=== PATIENT | male | born 1980 | race Caucasian/White ===

== ENCOUNTER 2016-12-11 09:04 | Emergency (ER) | payer OTHER ==
[2016-12-11 09:15] VITALS: BP 142/77
[2016-12-11] MEDS ORDERED: DEXAMETHASONE 10 MG/ML VIAL PO STA (09:21)
[2016-12-11] MEDS ORDERED: DEXAMETHASONE 10 MG/ML VIAL ONE (09:22)
--- NOTE | 2016-12-11 09:24 | ED Physician Documentation ---
PD HPI HEENT - Stated complaint Stated Complaint: THROAT PX - Chief complaint Chief Complaint: Heent - History obtained from History obtained from: Patient - History of Present Illness Timing - onset: How many days ago (2) Timing - duration: Days (2) Timing - details: Gradual onset, Still present Location: Throat Improves: Medication Worsens: Swalllowing Associated symptoms: Congestion, Rhinorrhea, Cough Similar symptoms before: Diagnosis (strep) Recently seen: Not recently seen - Additional information Additional information: 36 y/o male has had some trouble with a light cough and congestion for the past 2 weeks with seasonal allergies and about 2 days ago he developed a sore throat and he looked at this in the mirror and sees a white patch back there. He has not had a fever with this but he has 2 small children and he does not want to get them sick. Review of Systems Constitutional: denies: Fever Eyes: denies: Decreased vision Ears: reports: Ear pain. denies: Loss of hearing Nose: reports: Rhinorrhea / runny nose, Congestion Throat: reports: Sore throat Cardiac: denies: Chest pain / pressure, Palpitations Respiratory: reports: Cough. denies: Dyspnea GI: denies: Nausea, Vomiting : denies: Dysuria PD PAST MEDICAL HISTORY - Present Medications Home Medications: Ambulatory Orders Medication Instructions Recorded Confirmed Azithromycin [Zithromax] 250 mg PO DAILY #6 tablet 12/11/16 - Allergies Allergies/Adverse Reactions: Allergies Allergy/AdvReac Type Severity Reaction Status Date / Time No Known Drug Allergies Allergy Verified 12/11/16 09:11 PD ED PE NORMAL - Vitals Vital signs reviewed: Yes (hypertensive) - General General: Alert and oriented X 3, No acute distress, Well developed/nourished - HEENT HEENT: Atraumatic, PERRL, EOMI, Other (both TM's are inflamed with flatening of the landmarks. The pharynx is with swelling and erythema and an uleration to the uvula. ) - Neck Neck: Supple, no meningeal sign, No bony TTP - Cardiac Cardiac: RRR, No murmur - Respiratory Respiratory: No respiratory distress, Clear bilaterally - Abdomen Abdomen: Soft, Non tender - Back Back: No CVA TTP, No spinal TTP - Derm Derm: Normal color, Warm and dry, No rash - Extremities Extremities: No deformity - Neuro Neuro: Alert and oriented X 3, No motor deficit, No sensory deficit - Psych Psych: Normal mood, Normal affect Results - Vitals Vitals: Vital Signs - 24 hr 12/11/16 09:08 Temperature 36.8 C Heart Rate 80 Respiratory 18 Rate Blood Pressure 142/77 H O2 Saturation 97 Oxygen O2 Source Room air - Labs Labs: Laboratory Tests 12/11/16 09:20 Group A Strep Rapid Negative PD MEDICAL DECISION MAKING - ED course Complexity details: reviewed results, re-evaluated patient, considered differential, d/w patient ED course: 36 y/o male with a sore throat also has OM on exam. His throat looks more like he burned the uvula or has a primary viral infection. He is treated in the ED with decadron and we will put him on some zithromax. Departure - Departure Disposition: 01 Home, Self Care Clinical Impression: Sore throat Otitis media Qualifiers: Otitis media type: suppurative Laterality: bilateral Chronicity: acute Recurrence: not specified as recurrent Spontaneous tympanic membrane rupture: without spontaneous rupture Qualified Code(s): H66.003 - Acute suppurative otitis media without spontaneous rupture of ear drum, bilateral Condition: Stable Instructions: ED Otitis Media Acute Adult, ED Pharyngitis Viral Report Pending Follow-Up: [facility] [Provider Group] Prescriptions: Azithromycin [Zithromax] 250 mg PO DAILY #6 tablet Comments: Today in the Emergency Department your blood pressure was elevated. This can happen from the stress of the visit itself, from a current illness or circumstance or from uncontrolled hypertension. If you take blood pressure medications take your usual mediations, have your blood pressure re-checked in an appropriate setting and follow up any elevation with your primary care doctor. Discharge Date/Time: 12/11/16 10:34
[2016-12-11 09:42] LABS: RAPID STREP SCREEN REAGENT QC YELLOW (YELLOW)
== END 2016-12-11 10:34 | disposition home or self-care (01) ==
LOC: ED 09:04
DX: J02.9 Acute pharyngitis, unspecified (principal); H66.003 Acute suppurative otitis media without spontaneous rupture of ear drum, bilateral; R03.0 Elevated blood-pressure reading, without diagnosis of hypertension
CPT/HCPCS: 87070; 87430; 99283

== ENCOUNTER 2018-07-21 15:28 | Outpatient (CLI) | payer OTHER ==
--- NOTE | 2018-07-21 17:57 | MRI Report ---
Reason: PAIN IN RIGHT SHOULDER Procedure Date: 07/21/2018 Accession Number: [id number] / [id number] Procedure: MRI - Shoulder RT W/O CPT Code: FULL RESULT: EXAM: RIGHT SHOULDER MRI WITHOUT CONTRAST EXAM DATE: 07/21/2018 04:19 PM. CLINICAL HISTORY: Right shoulder pain for 4 months. Limited range of motion. COMPARISON: None. TECHNIQUE: Multiplanar, multisequence T1-weighted and fluid-sensitive sequences of the shoulder without contrast. Other: None. FINDINGS: Acromioclavicular Region: The acromion is type II. The acromioclavicular joint is unremarkable. The coracoacromial and coracoclavicular ligaments are intact. Trace amount of fluid at the subacromial/subdeltoid bursa. Glenohumeral Region: No subluxation. No effusion or loose bodies. The articular cartilage is unremarkable. The glenohumeral ligaments and joint capsule are unremarkable. Bone Marrow: No fracture, marrow edema or bone lesions. Labrum: The labrum is unremarkable on this nonarthrographic study. Musculature/Rotator Cuff: The supraspinatus tendon is unremarkable. There is infraspinatus tendinosis. Teres minor tendon is unremarkable. There is a linear low-grade partial-thickness intrasubstance tear at the distal aspect of the subscapularis tendon. No edema or fatty atrophy. Biceps Tendon: The long head of the biceps tendon and biceps bushra are intact. Other: The subcutaneous tissues are unremarkable. IMPRESSION: 1. Infraspinatus tendinosis. 2. Linear low-grade partial-thickness intrasubstance tear at the distal aspect of the subscapularis tendon. [facility] MUSCULOSKELETAL RADIOLOGY SECTION
== END 2018-07-21 15:29 | disposition home or self-care (01) ==
LOC: DI 15:28
PROVIDERS: ATTEND General Practice
DX: M75.101 Unspecified rotator cuff tear or rupture of right shoulder, not specified as traumatic (principal); M67.911 Unspecified disorder of synovium and tendon, right shoulder

== ENCOUNTER 2019-05-21 10:50 | Emergency (ER) | payer OTHER ==
--- NOTE | 2019-05-21 11:20 | ED Physician Documentation ---
History of Present Illness - Stated complaint Stated Complaint: HEART RACING/RT SIDE NUMBESS - Chief complaint Chief Complaint: Cardiac - History obtained from History obtained from: Patient - History of Present Illness Timing: Prior to arrival - Additonal information Additional information: This is a 38-year-old man who presents with complaint that he was sitting down in his work to study when all of a sudden the right On from the shoulders all the way down to the fingers went tingly. Then he felt like his heart was racing and he was very lightheaded. He got up and walked to the [place] thinking that he might just be hungry and needs something to eat. He was little bit short of breath and when he got back and his symptoms were not resolving he decided to have his friend bring him into the emergency department to be evaluated. This was a very sudden onset of the symptoms and he had a similar episode happened about 2 weeks ago that lasted for a few hours and then just resolved spontaneously. Patient says he drank about a half a cup of coffee this morning. He got a little bit nauseous with this but did not vomit. Had no chest pain. He never checked his heart rate. He did not get a headache or feel dizzy. He denies use of any illicit drugs and has not been using any [id number] decongestants. He does drink alcohol 1-2 drinks a night. 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 No recent illness. No history of cardiac disease. He is not diabetic. Review of Systems Constitutional: denies: Fever Eyes: denies: Loss of vision Ears: denies: Ear pain Nose: denies: Congestion Throat: denies: Sore throat Cardiac: reports: Palpitations. denies: Chest pain / pressure, Pedal edema Respiratory: reports: Dyspnea. denies: Cough GI: reports: Nausea. denies: Abdominal Pain, Vomiting, Diarrhea : denies: Dysuria Skin: denies: Rash Musculoskeletal: denies: Neck pain, Back pain, Extremity pain Neurologic: denies: Numbness (Tingling to the left arm that started in the hand and progressed up to the shoulder), Near syncope ([place] lightheaded), Syncope, Headache, LOC Endocrine: reports: Other (Patient is not a diabetic. No history of thyroid disorder) Immunocompromised: denies: Immunocompromised PD PAST MEDICAL HISTORY - Past Medical History Cardiovascular: None Respiratory: None Neuro: None Endocrine/Autoimmune: None GI: None : None HEENT: None Psych: None Musculoskeletal: None Derm: None - Past Surgical History Past Surgical History: No - Allergies Allergies/Adverse Reactions: Allergies Allergy/AdvReac Type Severity Reaction Status Date / Time No Known Drug Allergies Allergy Verified 05/21/19 11:07 - Social History Does the pt smoke?: No Smoking Status: Never smoker Does the pt drink ETOH?: No Does the pt have substance abuse?: No - Immunizations Immunizations are current?: Yes - POLST Patient has POLST: No PD ED PE NORMAL - Vitals Vital signs reviewed: Yes - General General: Alert and oriented X 3, No acute distress, Well developed/nourished - HEENT HEENT: Atraumatic, PERRL, EOMI, Moist mucous membranes, Pharynx benign - Neck Neck: Supple, no meningeal sign, No adenopathy, Thyroid normal, No bruit - Cardiac Cardiac: RRR, No murmur, Strong equal pulses - Respiratory Respiratory: No respiratory distress, Clear bilaterally - Abdomen Abdomen: Normal bowel sounds, Soft, Non tender, Non distended - Derm Derm: Normal color, Warm and dry, No rash - Extremities Extremities: No deformity, No tenderness to palpate, No edema - Neuro Neuro: Alert and oriented X 3, 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, No motor deficit, No sensory deficit, Normal speech - Psych Psych: Normal mood, Normal affect Results - Vitals Vitals: Vital Signs - 24 hr 05/21/19 05/21/19 05/21/19 11:03 12:46 14:00 Temperature 36.8 C Heart Rate 85 71 65 Respiratory 16 12 11 L Rate Blood Pressure 158/84 H 134/82 H 132/79 H O2 Saturation 100 100 98 05/21/19 05/21/19 05/21/19 14:46 15:00 15:24 Temperature 37.1 C Heart Rate 87 63 76 Respiratory 22 9 L 16 Rate Blood Pressure 128/82 H 131/83 H 126/86 H O2 Saturation 100 97 98 Oxygen O2 Source Room air - EKG (time done) 1104 Rate: Rate (enter#) (82) Rhythm: NSR Intervals: Normal TN. No: Wide QRS Ischemia: Normal ST segments Compare to prior EKG: Old EKG unavailable 1440 Rate: Rate (enter#) (68) Rhythm: NSR Intervals: Normal TN. No: Wide QRS Ischemia: Normal ST segments Compare to prior EKG: Unchanged from prior EKG - Labs Labs: Laboratory Tests 05/21/19 05/21/19 05/21/19 11:24 11:24 11:24 WBC 4.3 L RBC 4.40 L Hgb 13.6 L Hct 41.4 L MCV 94.1 H MCH 30.9 MCHC 32.9 RDW 12.1 Plt Count 230 MPV 9.2 Neut # (Auto) 2.7 Lymph # (Auto) 1.2 L Clayton # (Auto) 0.3 Eos # (Auto) 0.1 Baso # (Auto) 0.0 Absolute Nucleated RBC 0.00 Nucleated RBC % 0.0 Sodium 137 Potassium 3.7 Chloride 98 L Carbon Dioxide 27 Anion Gap 12.0 BUN 11 Creatinine 0.9 Estimated GFR (MDRD) 95 Glucose 174 H Calcium 9.0 Total Bilirubin 0.6 AST 65 H ALT 71 H Alkaline Phosphatase 50 Troponin I High Sens < 2.3 L Total Protein 7.6 Albumin 4.6 Globulin 3.0 Albumin/Globulin Ratio 1.5 Lipase 39 TSH 05/21/19 05/21/19 11:24 14:26 WBC RBC Hgb Hct MCV MCH MCHC RDW Plt Count MPV Neut # (Auto) Lymph # (Auto) Clayton # (Auto) Eos # (Auto) Baso # (Auto) Absolute Nucleated RBC Nucleated RBC % Sodium Potassium Chloride Carbon Dioxide Anion Gap BUN Creatinine Estimated GFR (MDRD) Glucose Calcium Total Bilirubin AST ALT Alkaline Phosphatase Troponin I High Sens 2.5 Total Protein Albumin Globulin Albumin/Globulin Ratio Lipase TSH 0.92 - Rads (name of study) CXR Radiology: EMP read indepedently (neg acute), See rad report PD MEDICAL DECISION MAKING - ED course Complexity details: reviewed results, re-evaluated patient, d/w patient, d/w family ED course: Patient was monitored here in the emergency department he had no tachycardia. He had to troponins that were negative and serial EKGs that were normal. Labs were normal. This point I do not have a clear explanation for his symptoms. [place] and [place] for wearing a Holter monitor. Departure - Departure Disposition: 01 Home, Self Care Clinical Impression: Arm paresthesia, right, Palpitations Condition: Good Instructions: ED Chest Pain Atypical Unkn Cause Follow-Up: [facility] [Provider Group] Comments[place] if you have any persistent symptoms and to discuss whether or not of Holter monitoring would be beneficial for you. Discharge Date/Time: 05/21/19 15:26
[2019-05-21 11:32] LABS: BASOPHILS % (AUTO) 0.9 %; EOSINOPHILS # (AUTO) 0.1 10^3/uL (0.0-0.7); EOSINOPHILS % (AUTO) 2.1 %; HGB - HEMOGLOBIN 13.6 g/dL (14.0-18.0); LYMPHOCYTES # (AUTO) 1.2 10^3/uL (1.5-3.5); LYMPHOCYTES % (AUTO) 27.4 %; MEAN CORPUSCULAR HEMOGLOBIN 30.9 pg (27.0-31.0); MEAN CORPUSCULAR HGB CONC 32.9 g/dL (32.0-36.0); MEAN CORPUSCULAR VOLUME 94.1 fL (80.0-94.0); MEAN PLATELET VOLUME 9.2 fL (7.4-11.4); MONOCYTES # (AUTO) 0.3 10^3/uL (0.0-1.0); NEUTROPHILS # (AUTO) 2.7 10^3/uL (1.5-6.6); NEUTROPHILS % (AUTO) 62.1 %; PLT - PLATELET COUNT 230 10^3/uL (130-450); RED CELL DISTRIBUTION WIDTH 12.1 % (12.0-15.0); WHITE BLOOD COUNT 4.3 x10^3/uL (4.8-10.8)
[2019-05-21 11:44] LABS: ALBUMIN 4.6 g/dL (3.2-5.5); ALBUMIN/GLOBULIN RATIO 1.5 (1.0-2.2); BILIRUBIN,TOTAL 0.6 mg/dL (0.2-1.0); CREATININE 0.9 mg/dL (0.6-1.2); TOTAL PROTEIN 7.6 g/dL (6.7-8.2)
--- NOTE | 2019-05-21 11:56 | XRAY Report ---
Reason: Chest Pain Procedure Date: 05/21/2019 Accession Number: [id number] / [id number] Procedure: XR - Chest 1 View X-Ray CPT Code: 16138 Final Report FULL RESULT: EXAM: CHEST RADIOGRAPHY EXAM DATE: 05/21/2019 11:25 AM. CLINICAL HISTORY: Chest Pain. COMPARISON: None. TECHNIQUE: 1 view. FINDINGS: Lungs/Pleura: No focal opacities evident. No pleural effusion. No pneumothorax. Mediastinum: Within exam limitations, the cardiomediastinal contour is normal. Other: None. IMPRESSION: Normal single view chest. [facility]
[2019-05-21 15:26] VITALS: BP 126/86
== END 2019-05-21 15:26 | disposition home or self-care (01) ==
LOC: ED 10:50
DX: R00.2 Palpitations (principal); R20.2 Paresthesia of skin
CPT/HCPCS: 36415; 71045; 80053; 83690; 84443; 84484; 85025; 93005; 99281; 99283

== ENCOUNTER 2020-06-20 08:39 | Emergency (ER) | payer OTHER ==
--- NOTE | 2020-06-20 08:46 | ED Physician Documentation ---
PD HPI URI - Stated complaint Stated Complaint: FOOTE/CONGESTION/COUGH - History obtained from History obtained from: Patient - History of Present Illness Timing - onset: Yesterday Timing duration: Days (1) Timing details: Abrupt onset, Still present Associated symptoms: Chills, Rhinorrhea, Sore throat, Dry cough (mild), Dyspnea (walking up stairs today), Other (no change in taste nor smell; has general aches and fatigue started yesterday). No: Fever, Swollen nodes, Productive cough Contributing factors: Other (has had close contact with coworkers (though masked).). 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 denies: Fever Nose: reports: Rhinorrhea / runny nose, Congestion, Sinus pressure / pain Throat: reports: Sore throat Respiratory: reports: Dyspnea (mild), Cough (mild). denies: Wheezing GI: denies: Nausea, Vomiting, Diarrhea Skin: denies: Rash Neurologic: denies: Headache PD PAST MEDICAL HISTORY - Past Medical History Cardiovascular: None Respiratory: None Neuro: None Endocrine/Autoimmune: None GI: None : None HEENT: None Psych: None Musculoskeletal: None Derm: None - Past Surgical History Past Surgical History: No - Present Medications Home Medications: Ambulatory Orders Medication Instructions Recorded Confirmed No Known Home Medications 06/20/20 06/20/20 - Allergies Allergies/Adverse Reactions: Allergies Allergy/AdvReac Type Severity Reaction Status Date / Time No Known Drug Allergies Allergy Verified 06/20/20 08:52 - Social History Does the pt smoke?: No Smoking Status: Never smoker Does the pt drink ETOH?: No Does the pt have substance abuse?: No - Immunizations Immunizations are current?: Yes - POLST Patient has POLST: No PD ED PE NORMAL - Vitals Vital signs reviewed: Yes - General General: Alert and oriented X 3, No acute distress, Well developed/nourished, Other (I examined the patient properly donned) - HEENT HEENT: Ears normal, Moist mucous membranes, Pharynx benign - Neck Neck: Supple, no meningeal sign, No adenopathy - Cardiac Cardiac: RRR, No murmur - Respiratory Respiratory: Clear bilaterally - Derm Derm: Normal color, Warm and dry, No rash - Neuro Neuro: Alert and oriented X 3, No motor deficit, Normal speech Results - Vitals Vitals: Vital Signs - 24 hr 06/20/20 06/20/20 08:49 09:09 Temperature 36.5 C Heart Rate 61 61 Respiratory 20 16 Rate Blood Pressure 143/97 H 134/92 H O2 Saturation 100 100 Oxygen O2 Source Room air Departure - Departure Disposition: Home, Self Care Clinical Impression: Upper respiratory infection Qualifiers: URI type: unspecified URI Qualified Code(s): J06.9 - Acute upper respiratory infection, unspecified Condition: Stable Record reviewed to determine appropriate education?: Yes Instructions: ED Upper Resp Infec No Abx Tx Follow-Up: [facility] [Provider Group] Comments: You have a Covid test pending. You need to self quarantine until the result is done and negative. Do not leave your house. Do not get near anybody. The results should be done in 48 to 72 hours, but sometimes longer. We will call with a positive result, the fastest way to get a negative result for confirmation though is to go to the hospital website at [email or web address], click on the my [employer] tab and sign up for the patient portal. If any friends or family get sick and would like to have a Covid test done, but do not have signs or symptoms that would necessitate being hospitalized, we encourage testing through our coronavirus swabbing station, call [phone] to schedule an appointment. Hopefully this is a common viral type cold and would be better in 2 to 3 days. Stay well-hydrated. Tylenol ibuprofen as needed for fevers and aches. Blfd-[id number]-[id number] cough medicine if needed etc. Forms: Activity restrictions
[2020-06-20 09:10] VITALS: BP 134/92
== END 2020-06-20 09:15 | disposition home or self-care (01) ==
LOC: ED 08:39
DX: J06.9 Acute upper respiratory infection, unspecified (principal); Z20.828 Contact with and (suspected) exposure to other viral communicable diseases
CPT/HCPCS: 99283

== ENCOUNTER 2023-01-03 13:21 | Outpatient (CLI) | payer OTHER ==
--- NOTE | 2023-01-03 16:04 | SLEEP CARE CONSULTATION ---
Information from patient questionnaire entered by Klaus Farmer. I have reviewed and concur with the information entered by Kluas Farmer. This document represents the service I personally performed and the decisions made by me, Jake Tamayo MD, [facility]. History of Present Illness Service Date and Time: 01/03/2023 1321 Reason for Visit: New patient Chief Complaint: reports: Insomnia, Unrefreshed sleep, Snoring, Observed pauses in breathing, Fatigue, Frequent awakenings at night Date of Onset: 4-5YRS Usual bedtime: 930-1030PM Time it takes to fall asleep: 30-60MIN Snores at night: Yes Observed to quit breathing while asleep: Yes Number of times waking at night: 5-10 Reasons for waking at night: reports: Snoring, Other (UNKNOWN) Toss, Turn, or Twitch while sleeping: Yes Recalls having dreams: Yes Usually gets out of bed at: 5AM Feels refreshed in the morning: No Morning headache: No Sleepy or fatigued during the day: Yes Ever fallen asleep while driving: No Takes day naps: Yes Dreams during day naps: Yes Prior sleep studies: No Additional HPI information: I had the pleasure of seeing Mr. Lee today regarding the possibility of him having a sleep disorder. As you know, he is a 42-year-old gentleman who complains of insomnia, frequent awakenings, loud snores, observed apneas, unrefreshed sleep, excessive daytime sleepiness, and persistent fatigue for 4 5 years. The patient tells me that he normally goes to bed around 9:30 10:30 pm, and it takes him approximately 30 - 60 minutes to fall asleep. He has been told that he snores loudly and irregularly at night. He has also been observed to stop breathing in his sleep. His can still sleep in the same bed. He can recall waking up on the average of 5 - 10 times during the night. Most of the time he wakes up because of his own snoring, choking, and having to gasp for air. There is a lot of tossing and turning in his sleep. No somniloquy (sleep talking) or somnambulism (sleep walking). Generally, he can recall having d leyda. In the morning he usually gets up out of the bed around 5 a.m. not feeling refreshed nor rested. He usually does not have a morning headache. During the day he complains of feeling fatigued. His score on [place] Sleepiness Scale is 2 out of 24. He never has fallen asleep while driving nor has had any accident due to sleepiness. He usually does not take naps during the day. He denies having impaired concentration during the day. - Parasomnia Symptoms Ever been unable to move upon waking from sleep: No Walks in sleep: No Talks in sleep: No Ever acted out dreams in sleep: No Ever felt weak in the knees when startled or emotional: No Bothered by creepy, crawly, restless sensations in legs: No Problems with memory or concentration: No Subjective Initial [place] Sleepiness Scale score: 2 (01/03/23) Social History The patient's occupation is a AM. Patient is and lives in [place]. Have you smoked in the past 12 months: No Alcohol use: Yes Alcohol amount and frequency: A COUPLE GLASSES SOCIALLY OR GLASS OF WINE WITH DINNER Caffeine use: Yes Caffeine amount and frequency: 2-3 CUPS DAILY BUT NOT IN THE AFTERNOON Family History Family Hx Sleep Apnea: Father: Snoring, Sibling: Snoring Allergies and Home Medications Known drug allergies: No Drug allergies reviewed: Yes Home medication list reviewed: Yes Allergy and home medication list: Allergies No Known Drug Allergies Allergy (Verified 12/31/22 08:41) Review of Systems Cardiovascular: denies: high blood pressure, palpitations, chest pain, irregular heart rate or pulse, leg or foot swelling, have to sleep sitting up, other Respiratory: denies: shortness of breath, wheeze, sputum production, chronic cough, other Gastrointestinal: denies: heartburn, difficulty swallowing, nausea, vomitting, diarrhea, abdominal pain, other Urinary: denies: incontinence, frequency, urgency, impotence, other Neurological: denies: headaches, seizure, head trauma, disorientation, speech dysfunction, gait or balance problems, fainting or unconsciousness, other Psychiatric: denies: Attention Deficit Hyperactivity, anxiety, depression, mood disorder, claustrophobia, other Ear/Nose/Throat: denies: nasal congestion, sinus problems, nose bleeds, dry mouth/throat, hoarseness, injury to nose, tonsillectomy, wisdom teeth removed, other Endocrine: denies: thyroid disease, history of goiter, sluggishness, too hot or cold, excessive thirst, increased appetite, increased urination, unexplained weakness, other Musculoskeletal: denies: joint pain, neck pain, back pain, joint swelling, muscle pain or cramping, mobility problems, other Immunologic: denies: sneezing, rash, itching, allergies to food or environment, other Physical Exam Vital signs obtained and entered by: KLAUS Quinteros MA Blood Pressure: 116/70 (LEFT ARM) Cuff size: regular Heart Rate: 66 O2 Saturation: 98 Height: 6 ft 2 in Weight: 205 lb Body Mass Index: 26.3 BMI Classification: Overweight Neck circumference: 15.75 Mood/affect: normal HEENT: No craniofacial malformation Nostrils: patent to airflow Turbinates: normal Septum: midline Mouth and throat: normal Soft palate: normal Hard palate: normal Uvula: normal Uvula visualization: 100% Mallampati Class I Tongue: normal in size Tonsils: small Chin and jaw: normal size and position Neck: normal w/o lymphadenopathy or thyromegaly Heart: regular rate and rhythm Lungs: clear bilaterally Extremities: no edema or clubbing Neurologic: intact Impression and Plan IMPRESSION: 1. Obstructive Sleep Apnea-Hypopnea Syndrome, as suggested by history of loud and irregular snoring, observed cessation of breath while asleep, frequent awakenings during the night, nocturnal choking, unrefreshed sleep, and persistent fatigue. I recommend proceeding to polysomnography to confirm the diagnosis and to assess severity. If he has significant sleep disordered breathing, a manual CPAP titration study will also be performed to find the optimal treatment pressure. I informed the patient of what the sleep studies involve and after some discussion, he agreed to proceed. Plan: 1. Schedule polysomnography and return in 1 to 2 weeks after the study to discuss the result and initiate therapy. 2. Avoid long distance driving or when feeling sleepy. 3. Avoid alcohol, sedatives, and muscle relaxants around bedtime. Follow up with Sleep Care in: 1-2 months Visit Type: In Office Time Spent with Patient (minutes): 15 Provider Statement: I spent 100% of the Face to Face Visit with the patient with greater than 50% spent counseling the patient and coordination of care.
[2023-01-03 16:07] VITALS: BP 116/70
== END 2023-01-03 13:22 | disposition home or self-care (01) ==
LOC: SC 13:21
PROVIDERS: ATTEND Internal Medicine Pulmonary Disease
DX: R06.83 Snoring (principal); G47.8 Other sleep disorders; R06.81 Apnea, not elsewhere classified; R53.83 Other fatigue; E66.3 Overweight; Z68.26 Body mass index [BMI] 26.0-26.9, adult
CPT/HCPCS: 99202; 99212

== ENCOUNTER 2023-01-31 19:34 | Outpatient (CLI) | payer OTHER | END 2023-01-31 19:35 | disposition home or self-care (01) | LOC: SC 19:34 | PROVIDERS: ATTEND Internal Medicine Pulmonary Disease | DX: G47.33 Obstructive sleep apnea (adult) (pediatric) (principal); G47.61 Periodic limb movement disorder | CPT/HCPCS: 95810 ==

== ENCOUNTER 2023-02-16 11:01 | Outpatient (CLI) | payer OTHER ==
--- NOTE | 2023-02-16 11:46 | Sleep Patient Instructions ---
Sleep Center Visit Summary - Patient Visit Information Reason for Visit: SLEEP STUDY FOLLOWUP - Patient Instructions Instructions Attached: Apnea Sleep Mouthpieces Additional Instructions: You have opted for an oral mandibular appliance to control your sleep apnea. A list of certified dentists in the area was provided for you to find a dentist to have your oral appliance made. Once you have the device, please call and make a follow up appointment. We need to see you after you have been using the appliance for a month. We will evaluate your response to therapy and order a follow up sleep study to check efficiency of treatment. Please call office to schedule a follow up appointment in the sleep care office for a month after using device. - Clinic Information Contact: [facility] [address] [place] [address] [email or web address] T: [phone]
--- NOTE | 2023-02-16 11:50 | SLEEP CARE CONSULTATION ---
Information from patient questionnaire entered by Tri Farmer. I have reviewed and concur with the information entered by Tri Farmer. This document represents the service I personally performed and the decisions made by , Jonelle Ward ARNP. History of Present Illness Service Date and Time: 02/16/2023 1101 Initial [place] Sleepiness Scale score: 2 (01/03/23) Current [place] Sleepiness Scale score: 4 (02/16/23) Additional HPI information: GUADALUPE WILL returns for follow up and results of the recently performed polysomnography. Sleep study showed mild obstructive sleep apnea with an average AHI of 8.4 and alin oxygen saturation of 84%. He also had moderate periodic leg movements of sleep that did contribute to sleep fragmentation. I explained the pathophysiology behind obstructive sleep apnea. We then spent quite a bit of time discussing different treatment options. For mild obstructive sleep apnea, surgery and oral appliance are alternatives to nasal CPAP therapy but in moderate or severe cases, nasal CPAP is the most effective and reliable treatment. He would like to try the oral appliance to treat his sleep apnea. Because apnea is primarily in supine position, then positional management therapy could be effective. Methods discussed such as positioning with pillows, using a T-shirt with tennis balls in the back or commercial products that have a pillow format on back to prevent supine sleep. I reviewed the impact of weight changes on sleep apnea and strongly recommended losing weight. Patient counseled not drink alcohol less than 4 hours before bedtime as it can increase snoring and apnea. Patient was cautioned about risks of drowsy driving until sleepiness symptoms resolve. Patient denies drowsy driving. Sleep Study - Results Type of Sleep Study: Polysomnography (COMPLETED 01/31/23) Prior sleep studies: No Polysomnography/Home Sleep Study results: IMPRESSION: The quality of the study is good. The patient had normal sleep efficiency. The sleep architecture was abnormal for sleep fragmentation and reduced amount of time spent in REM and slow wave sleep (N3). Respiratory monitoring showed mild obstructive sleep apnea-hypopnea (AHI = 8.4) associated with frequent arousals, oxyhemoglobin desaturation and mild hypoxia (alin oxygen saturation of 84%). The respiratory events occurred almost exclusively during supine sleep (supine AHI = 14.4; non-supine = 0.69). Snore was moderate to loud in intensity. There was moderate periodic leg movement of sleep contributing to the sleep fragmentation. Cardiac rhythm was normal sinus rhythm without significant arrhythmia. No abnormal behavior (parasomnia) observed during the night. Allergies and Home Medications Known drug allergies: No Drug allergies reviewed: Yes Home medication list reviewed: Yes (no changes) Allergy and home medication list: Allergies No Known Drug Allergies Allergy Review of Systems Review of systems same as previous: Yes (no changes) Physical Exam Vital signs obtained and entered by: TRI Quinteros MA Blood Pressure: 146/100 (LEFT ARM) Cuff size: regular Heart Rate: 100 O2 Saturation: 75 Height: 6 ft 2 in Weight: 207 lb 12.8 oz (in boots/clothes) Body Mass Index: 26.6 BMI Classification: Overweight Impression and Plan 1. Obstructive Sleep Apnea-Hypopnea Syndrome, mild, with lowest oxygen saturation of 84%. Obviously this is the cause of the patients symptoms of unrefreshed sleep, and excessive daytime sleepiness. As mentioned above, the patient chose an oral appliance to treat their apnea. A follow up a month after using his oral appliance will be made to see if appliance has reduced symptoms. If so, another polysomnography will be ordered with use of the oral appliance to check efficacy in reducing apnea. Until patient is able to use the oral appliance, positional therapy is advised to avoid supine sleep with pillow positioning or one of the commercial products because apnea is more severe supine. 2. Hypoxemia, mild, with a alin oxygen saturation of 84% and 2.1 minutes spent under 90%. His baseline oxygen saturation was normal with an average oxygen saturation of 94%. 3. Periodic limb movement, moderate, that did not fragment patients sleep. Periodic limb movement of sleep (PLMS) is characterized by episodes of repetitive limb movements that occur during sleep and usually involve the lower limbs. The etiology is unknown. Caffeine can aggravate PLMS and should be avoided. Sleep hygiene methods can also improve sleep as well as lifestyle changes such as regular exercise. Patient was advised that no treatment is ne eded at this time. If symptoms increase, then further evaluation is indicated. * Oral appliance * Attempt to lose weight. * Avoid alcohol consumption near bedtime. * Avoid supine sleep until using CPAP. * The patient is again cautioned about driving until sleepiness completely resolves. * Return one month after CPAP obtained. I will assess response to therapy and compliance at that time. Counseling Topics: Weight loss health impact Prescriptions: Other (Oral appliance) Follow up with Sleep Care in: other (one month after obtaining oral appliance) Visit Type: In Office Time Spent with Patient (minutes): 20 Provider Statement: I spent 100% of the Face to Face Visit with the patient with greater than 50% spent counseling the patient and coordination of care.
[2023-02-16 11:57] VITALS: BP 146/100; O2SAT 75
== END 2023-02-16 11:02 | disposition home or self-care (01) ==
LOC: SC 11:01
PROVIDERS: ATTEND Nurse Practitioner Family
DX: G47.33 Obstructive sleep apnea (adult) (pediatric) (principal); G47.61 Periodic limb movement disorder
CPT/HCPCS: 99212; 99213

== ENCOUNTER 2023-06-23 11:23 | Outpatient (CLI) | payer OTHER ==
--- NOTE | 2023-06-23 12:26 | Sleep Patient Instructions ---
Sleep Center Visit Summary - Patient Visit Information Reason for Visit: First compliance follow-up with CPAP - Patient Instructions Additional Instructions: You were here for follow up of CPAP therapy. You will be continued on CPAP therapy with pressure at 8-11 cmH2O. Please let us know if the pressure change is uncomfortable and we can make further adjustments of the pressure. A MWT test to check daytime sleepiness is order and someone will call to set that up with you. You should follow up with sleep care in 1-2 months or after MWT. You may contact us sooner for any questions or concerns. - Clinic Information Contact: [facility] [address] [place] [address] [email or web address] T: [phone]
[2023-06-23 12:35] VITALS: BP 132/82; O2SAT 98
--- NOTE | 2023-06-23 12:35 | SLEEP CARE CONSULTATION ---
Information from patient questionnaire entered by Tri Farmer. I have reviewed and concur with the information entered by Tri Farmer. This document represents the service I personally performed and the decisions made by , Jonelle Ward ARNP. History of Present Illness Service Date and Time: 06/23/2023 1123 Previous diagnosis: Mild, Obstructive Sleep Apnea-Hypopnea Syndrome AHI: 8.4 (01/2023) Reason for follow up: first compliance Equipment type: CPAP (RESMED Airsense 10, s/u 03/2023; SD CARD) Equipment obtained from: Other ([facility]; getting supplies) Mask style: Nasal Backup mask available: No (will keep old mask when replaced) Last cushion change: 2 weeks Prior sleep studies: No Type of Sleep Study: Polysomnography (COMPLETED 01/31/23) HPI additional information: GUADALUPE WILL was diagnosed to have mild, AHI 8.4, obstructive sleep apnea- hypopnea syndrome and returned today for CPAP therapy first compliance follow- up. Sleep Study - Results Type of Sleep Study: Polysomnography (COMPLETED 01/31/23) Prior sleep studies: No CPAP Compliance Data - Data Reviewed with Patient Average duration of nightly device use: 7 hours 24 minutes Compliance rate %: 95 (74/75 days used) Current pressure setting (cmH2O): 4-15 (median 7.4, avg 10, max 11) Average residual AHI: 0.9 Central apnea: 0.2 Obstructive apnea: 0.3 Average large leak: 3.6 L/min Subjective Patient concerns: reports: mask discomfort (just when on side or stomach; not often), dry mouth, nose, throat (rarely occurs). denies: aerophagia, air blowing in eyes, mask leak noise, condensation in mask/hose, nasal congestion, epistaxis Observed to snore while using device: Yes (occasional) Current pressure setting perceived as: comfortable On therapy, patient: reports: sleeping better, awakening more refreshed, being more awake and alert during the day, more rested overall. denies: drowsiness while driving Initial [place] Sleepiness Scale score: 2 (01/03/23) Current [place] Sleepiness Scale score: 5 Allergies and Home Medications Known drug allergies: No Drug allergies reviewed: Yes Home medication list reviewed: Yes (no changes) Allergy and home medication list: Allergies No Known Drug Allergies Allergy (Verified 06/21/23 12:19) Review of Systems Review of systems same as previous: Yes (no changes) Physical Exam Vital signs obtained and entered by: TAWANDA GORE Blood Pressure: 132/82 Cuff size: regular (left arm) Heart Rate: 64 O2 Saturation: 98 Height: 6 ft 2 in Weight: 216 lb 6.4 oz Body Mass Index: 27.8 BMI Classification: Overweight Impression and Plan 1. Obstructive Sleep Apnea-Hypopnea Syndrome, mild, with good treatment compliance and good apnea control. On CPAP therapy, the patient has better sleep quality and is more rested overall. He has felt that he is tolerating the CPAP mask well and has significant improvement of his sleep apnea. The patients pressure will be changed to autoCPAP 8-11 cmH20 to reflect pressure being used. Patient advised to contact me if pressure change is uncomfortable so that it can be adjusted. Goals for apnea control discussed. 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 I will order this and we will follow up with him after the study is completed. Patient's apnea severity and rationale for treatment to reduce apnea, improve sleep quality and reduce cardiovascular and cerebrovascular events was reviewed. 2. Overweight, unspecified. Currently patients BMI is 27.8. Obesity increases the risk of apnea, CPAP pressure requirements and overall health risks especially cardiovascular and diabetes. Thus patient is advised to lose weight. * Change auto CPAP pressure to 8-11 cmH2O * MWT * Notify me if snoring with mask or feeling that the pressure is too much or too little * Attempt to lose weight * Call this office if any problems using CPAP * Return for follow up in 1-2 months or just after MWT, or sooner if concerns arise Counseling Topics: Spare mask, Weight loss health impact Follow up with Sleep Care in: 1-2 months Plan: MWT Visit Type: In Office Time Spent with Patient (minutes): 26 Provider Statement: I spent 100% of the Face to Face Visit with the patient with greater than 50% spent counseling the patient and coordination of care.
== END 2023-06-23 11:24 | disposition home or self-care (01) ==
LOC: SC 11:23
PROVIDERS: ATTEND Nurse Practitioner Family
DX: G47.33 Obstructive sleep apnea (adult) (pediatric) (principal); E66.3 Overweight; Z68.27 Body mass index [BMI] 27.0-27.9, adult
CPT/HCPCS: 99212; 99213

== ENCOUNTER 2023-08-23 07:02 | Outpatient (CLI) | payer OTHER | END 2023-08-23 07:03 | disposition home or self-care (01) | LOC: SC 07:02 | PROVIDERS: ATTEND Nurse Practitioner Family | DX: G47.33 Obstructive sleep apnea (adult) (pediatric) (principal) | CPT/HCPCS: 80306; 95805 ==

== ENCOUNTER 2023-08-23 08:00 | Outpatient (CLI) | payer OTHER ==
[2023-08-23 12:56] LABS: AMPHETAMINE SCREEN,URINE NEGATIVE (NEGATIVE); BARBITURATE SCREEN,UR NEGATIVE (NEGATIVE); BENZODIAZEPINES SCREEN, URINE NEGATIVE (NEGATIVE); BUPRENORPHINE SCREEN, URINE NEGATIVE (NEGATIVE); COCAINE SCREEN URINE NEGATIVE (NEGATIVE); METHADONE SCREEN, URINE NEGATIVE (NEGATIVE); METHAMPHETAMINES SCREEN, URINE NEGATIVE (NEGATIVE); OPIATE SCREEN, URINE NEGATIVE (NEGATIVE); OXYCODONE SCREEN, URINE NEGATIVE (NEGATIVE); THC CANNABINOID SCREEN, URINE NEGATIVE (NEGATIVE); TRICYCLIC ANTIDEPRESSANT,URINE NEGATIVE (NEGATIVE)
== END 2023-08-23 23:59 | disposition home or self-care (01) ==
LOC: LAB.N 08:00
PROVIDERS: ATTEND Nurse Practitioner Family
DX: G47.10 Hypersomnia, unspecified (principal)
CPT/HCPCS: 80306

== ENCOUNTER 2023-08-31 14:05 | Outpatient (CLI) | payer OTHER ==
--- NOTE | 2023-08-31 14:31 | Sleep Patient Instructions ---
Sleep Center Visit Summary - Patient Visit Information Reason for Visit: MWT study follow-up - Patient Instructions Additional Instructions: You were here for follow up of the MWT study you completed which showed no excessive daytime sleepiness. You will be continued on CPAP therapy with pressure at 8-11 cmH2O. You should follow up with sleep care in 3 months. You may contact us sooner for any questions or concerns. - Clinic Information Contact: [facility] [address] [place] [address] [email or web address] T: [phone]
--- NOTE | 2023-08-31 14:37 | SLEEP CARE CONSULTATION ---
Information from patient questionnaire entered by Klaus Farmer. I have reviewed and concur with the information entered by Klaus Farmer. This document represents the service I personally performed and the decisions made by me, Jonelle Ward ARNP. History of Present Illness Service Date and Time: 08/31/2023 1405 Initial [place] Sleepiness Scale score: 2 (01/03/23) Current [place] Sleepiness Scale score: 4 (08/31/23) Additional HPI information: GUADALUPE WILL returns for follow up of the MWT study performed on 08/23/23. The patient was informed of the following findings: This is a normal MWT. There is no evidence of daytime sleepiness. Sleep Study - Results Type of Sleep Study: Polysomnography (COMPLETED 01/31/23 MWT COMPLETED 08/23/23) Prior sleep studies: No Polysomnography/Home Sleep Study results: Physicians Interpretation This is a normal MWT. There is no evidence of daytime sleepiness. Allergies and Home Medications Known drug allergies: No Drug allergies reviewed: Yes Home medication list reviewed: Yes (no changes) Allergy and home medication list: Allergies No Known Drug Allergies Allergy (Verified 08/30/23 16:24) Review of Systems Review of systems same as previous: Yes (NO CHANGE) Physical Exam Vital signs obtained and entered by: KLAUS Quinteros MA Blood Pressure: 148/97 (RIGHT ARM) Cuff size: regular Heart Rate: 84 O2 Saturation: 97 Height: 6 ft 2 in Weight: 214 lb 3.2 oz Body Mass Index: 27.5 BMI Classification: Overweight Impression and Plan 1. Obstructive Sleep Apnea-Hypopnea Syndrome, mild. On CPAP therapy, the patient has better sleep quality and is more rested overall. He returns to office for results of his MWT which showed no evidence of daytime sleepiness. He is to continue CPAP therapy with current settings. Patient's apnea severity and rationale for treatment to reduce apnea, improve sleep quality and reduce cardiovascular and cerebrovascular events was reviewed. 2. Overweight, unspecified. Currently patients BMI is 27.5. He says he is losing weight. He is going to the gym more now. Obesity increases the risk of a pnea, CPAP pressure requirements and overall health risks especially cardiovascular and diabetes. Thus patient is advised to continue to try to lose weight. * Continue auto CPAP pressure at 8-11 cmH2O * Notify me if snoring with mask or feeling that the pressure is too much or too little * Attempt to lose weight * Call this office if any problems using CPAP * Return for follow up in 3 months, or sooner if concerns arise Counseling Topics: Weight loss health impact Follow up with Sleep Care in: 3 months Visit Type: In Office Time Spent with Patient (minutes): 12 Provider Statement: I spent 100% of the Face to Face Visit with the patient with greater than 50% spent counseling the patient and coordination of care.
[2023-08-31 14:41] VITALS: BP 148/97; O2SAT 97
== END 2023-08-31 14:06 | disposition home or self-care (01) ==
LOC: SC 14:05
PROVIDERS: ATTEND Nurse Practitioner Family
DX: G47.33 Obstructive sleep apnea (adult) (pediatric) (principal); E66.3 Overweight; Z68.27 Body mass index [BMI] 27.0-27.9, adult
CPT/HCPCS: 99212